=== PATIENT | male | born 1985 | race African-American/Black ===

== ENCOUNTER 2024-09-18 03:02 | Emergency (ER) | payer SELFPAY ==
[~2024-09-18] VITALS: Ht 185.4 cm; Wt 91.0 kg
[2024-09-18 03:16] VITALS: TEMP 36.7; O2SAT 99
[2024-09-18] MEDS: TETANUS, DIPHTHERIA, PERTUSSIS VAC/PF 0.5ML (>10YR OLD) IM ONE (04:30)
[2024-09-18] MEDS: ACETAMINOPHEN 500MG TABLET PO ONE (05:01)
[2024-09-18] MEDS: BACITRACIN ZINC OINT UDPKT TOP ONE (05:20)
[2024-09-18] MEDS: LIDOCAINE HCL/PF 1% 10 MG/ML 5ML VIAL INFIL ONE (05:21)
[2024-09-18 05:28] VITALS: BP 120/68; PULSE 75; RESP 16; O2SAT 99
== END 2024-09-18 06:31 | disposition home or self-care (01) ==
LOC: ER 03:02
DX: S61.411A Laceration without foreign body of right hand, initial encounter (principal); W25.XXXA Contact with sharp glass, initial encounter; Y93.89 Activity, other specified; Y92.89 Other specified places as the place of occurrence of the external cause; Y99.8 Other external cause status
CPT/HCPCS: 73130; 90715; 12002; 90471; 99283; J2003; Z7610